=== PATIENT | female | born 1970 | race Caucasian/White ===

== ENCOUNTER 2017-09-24 15:40 | Emergency (ER) | payer MEDICAID, OTHER ==
[2017-09-24] MEDS: IBUPROFEN 800 MG TAB PO (16:11)
== END 2017-09-24 16:41 | disposition home or self-care (01) ==
LOC: FTE 15:40
DX: M72.2 Plantar fascial fibromatosis (principal); M77.31 Calcaneal spur, right foot
CPT/HCPCS: 73630; 99283-25

== ENCOUNTER 2017-10-14 15:57 | Emergency (ER) | payer MEDICAID | END 2017-10-14 16:26 | disposition home or self-care (01) | LOC: E/R 15:57 | DX: M79.671 Pain in right foot (principal) | CPT/HCPCS: 99283; Z7502 ==